=== PATIENT | female | born 1980 | race Caucasian/White ===

== ENCOUNTER 2018-02-03 11:43 | Emergency (ER) | payer BC ==
--- NOTE | 2018-02-03 12:04 | ED Physician Documentation ---
PD HPI SEIZURE - Stated complaint Stated Complaint: SZ - Chief complaint Chief Complaint: Cardiac - History obtained from History obtained from: Patient - History of Present Illness Timing - onset: Last night Witnessed: Unwitnessed Number of seizures: Single (She awoke from sleep with a feeling of pain in her teeth and stiff stiffness in her muscles. She is also having some pain in the left chest area. She believes she might have had a seizure during the night. She had had another similar episode several years ago with the tongue injury and a broken tooth and the assumption was a seizure episode. She had not been on any seizure medicines. She denies any headache. She denies any seizure disorder when younger. She is not having any headache. She was having chest pain continued into today and came here for evaluation of that after calling her primary care to try to get an appointment.) Description of seizure activity: Generalized Injury during seizure: Other (she feels her upper left teeth are sore and she is having left/anterior chest pain.) Associated symptoms: Chest pain. No: Headache, Vision changes, Dyspnea, Nausea / vomiting History of seizures: No: Known seizure disorder (She had a similar episode several years ago during the night as well and thought it was likely seizure as she had bit her tongue and broke a tooth. She had not had any workup of it and no interval problems. She denies any seizure disorder when younger.) Contributing factors: Other (She had just gotten back from a week in [place] for vacation. She states she was there with friends and did drink a little bit heavily during it but not excessive. She denied any anxiety or withdrawal symptoms. She has been home for 2-3 days. She is feeling stressed at home.). No: Head injury, EtOH withdrawal, Benzo withdrawal Similar symptoms before: No diagnosis Recently seen: Not recently seen Review of Systems Constitutional: denies: Fever, Chills, Myalgias Eyes: denies: Loss of vision, Decreased vision, Photophobia Nose: denies: Rhinorrhea / runny nose, Congestion Throat: reports: Dental pain / toothache (after the event last night, left upper teeth sore with occlusion. No fractures, per patient.). denies: Sore throat Cardiac: reports: Chest pain / pressure (today post seizure like event). denies: Palpitations, Pedal edema, Calf pain Respiratory: denies: Dyspnea, Cough, Wheezing GI: denies: Abdominal Pain, Nausea, Vomiting, Diarrhea : denies: Dysuria, Frequency Skin: denies: Abrasion (s), Laceration (s) Musculoskeletal: denies: Neck pain, Back pain Neurologic: denies: Generalized weakness, Focal weakness, Numbness, Altered mental status, Headache, Head injury PD PAST MEDICAL HISTORY - Past Medical History Cardiovascular: None Respiratory: None Endocrine/Autoimmune: None - Present Medications Home Medications: Ambulatory Orders Medication Instructions Recorded Confirmed HYDROcod/ACETAM 5/325 [[place] 5/325] 1 tab PO Q6H PRN #15 tablet 02/03/18 Losartan [Cozaar] 50 mg PO DAILY #30 tablet 02/03/18 Naproxen [Naprosyn] 500 mg PO BID PRN #30 tablet 02/03/18 - Allergies Allergies/Adverse Reactions: Allergies Allergy/AdvReac Type Severity Reaction Status Date / Time sulfamethoxazole Allergy Hives Verified 02/03/18 11:48 [From ] trimethoprim [From ] Allergy Hives Verified 02/03/18 11:48 - Living Situation Living Situation: reports: With family Living Arrangement: reports: At home - Social History Does the pt smoke?: No Does the pt drink ETOH?: Yes Does the pt have substance abuse?: No - Family History Family history: denies: CAD, Venous thromboembolism PD ED PE NORMAL - Vitals Vital signs reviewed: Yes - General General: Alert and oriented X 3, No acute distress, Well developed/nourished - HEENT HEENT: Atraumatic, Moist mucous membranes, Pharynx benign, Dentition benign (no obvious fractures/broken teeth. Mild abrasion left side of tongue. ) - Neck Neck: Supple, no meningeal sign, No bony TTP, No adenopathy - Cardiac Cardiac: RRR, No murmur - Respiratory Respiratory: Clear bilaterally, Other (some mild chestwall tenderness left parasternal area. However she says she also feels a deeper pain. ) - Abdomen Abdomen: Soft, Non tender - Back Back: No CVA TTP, No spinal TTP - Derm Derm: Normal color - Extremities Extremities: No deformity, No tenderness to palpate - Neuro Neuro: Alert and oriented X 3, officer captain 2-12 intact, No motor deficit, No sensory deficit, Normal speech Eye Opening: Spontaneous Motor: Obeys Commands Verbal: Oriented GCS Score: 15 Results - Vitals Vitals: Vital Signs - 24 hr 02/03/18 02/03/18 02/03/18 11:44 12:08 12:45 Temperature 36.5 C Heart Rate 95 81 76 Respiratory 20 20 22 Rate Blood Pressure 237/118 H 200/121 H 214/115 H O2 Saturation 100 98 98 02/03/18 02/03/18 02/03/18 12:50 12:55 13:00 Temperature Heart Rate 72 70 75 Respiratory 20 22 18 Rate Blood Pressure 195/130 H 161/125 H 166/105 H O2 Saturation 97 99 97 02/03/18 13:15 Temperature Heart Rate 73 Respiratory Rate Blood Pressure 184/122 H O2 Saturation 100 Oxygen O2 Source Room air - EKG (time done) 11:54 Rate: Rate (enter#) (76) Rhythm: NSR [place]: Normal Intervals: Normal [place] QRS: Normal Ischemia: Normal ST segments. No: ST elevation c/w ischemia, ST depression - Labs Labs: Laboratory Tests 02/03/18 02/03/18 02/03/18 12:30 12:30 12:30 WBC 6.2 RBC 4.02 L Hgb 14.0 Hct 40.7 MCV 101.4 H MCH 34.7 H MCHC 34.3 RDW 14.2 Plt Count 284 MPV 7.1 L Neut # (Auto) 4.7 Lymph # (Auto) 1.1 L [place] # (Auto) 0.3 Eos # (Auto) 0.0 Baso # (Auto) 0.0 Absolute Nucleated RBC 0.00 Nucleated RBC % 0.1 D-Dimer Sodium 141 Potassium 3.8 Chloride 109 Carbon Dioxide 24 Anion Gap 8.0 BUN 12 Creatinine 0.6 Estimated GFR (MDRD) 112 Glucose 97 Calcium 8.7 Total Bilirubin 0.7 AST 23 ALT 19 Alkaline Phosphatase 59 Troponin I < 0.04 B-Natriuretic Peptide Total Protein 7.2 Albumin 3.9 Globulin 3.3 Albumin/Globulin Ratio 1.2 Lipase 24 02/03/18 02/03/18 12:30 12:30 WBC RBC Hgb Hct MCV MCH MCHC RDW Plt Count MPV Neut # (Auto) Lymph # (Auto) [place] # (Auto) Eos # (Auto) Baso # (Auto) Absolute Nucleated RBC Nucleated RBC % D-Dimer < 200.0 L Sodium Potassium Chloride Carbon Dioxide Anion Gap BUN Creatinine Estimated GFR (MDRD) Glucose Calcium Total Bilirubin AST ALT Alkaline Phosphatase Troponin I B-Natriuretic Peptide 34 Total Protein Albumin Globulin Albumin/Globulin Ratio Lipase - Rads (name of study) chest xray Radiology: Prelim report reviewed (no acute process) head CT Radiology: Prelim report reviewed (no acute process) PD MEDICAL DECISION MAKING - ED course Complexity details: considered differential (Initial worry with a significant hypertension associated with some chest pain and what she thinks was a seizure during the night would be worrisome for hypertensive urgency with endorgan dysf unction. However she does not have any headache today nor blurred vision or nausea. This makes it sound less likely. Could consider intracranial bleed but again no headache is present. We will do a CT scan to evaluate. Her chest pain has musculoskeletal component to it but I would also be worried for vascular problem given the hypertension. She is given medications for blood pressure and this reduces moderately into a reasonable range for now of 160-170 systolic. She is given some pain medication anti-inflammatory. She is feeling better with that. Her kidney function as well as EKG troponin and head CT are normal. There is no obvious organ dysfunction related to the blood pressure so I presume it was more acute and not that significantly high for a prolonged period. We will start her on a blood pressure medicine.), d/w patient Departure - Departure Disposition: 01 Home, Self Care Clinical Impression: Musculoskeletal chest pain, History of seizure Hypertension Qualifiers: Hypertension type: unspecified secondary hypertension Qualified Code(s): I15.9 - Secondary hypertension, unspecified Clinical Impression: (Ruled Out): Myocardial infarction, Pulmonary embolism Condition: Stable Record reviewed to determine appropriate education?: Yes Instructions: ED Strain Chest Wall Follow-Up: Milly He PA-C [Primary Care Provider] - Prescriptions: HYDROcod/ACETAM 5/325 [[place] 5/325] 1 tab PO Q6H PRN #15 tablet PRN Reason: Pain Losartan [Cozaar] 50 mg PO DAILY #30 tablet Naproxen [Naprosyn] 500 mg PO BID PRN #30 tablet PRN Reason: Pain Comments: You do not have any signs of serious causes of the chest pain based on your EKG, chest x-ray and blood tests. I presume its musculoskeletal pain subsequent to the apparent seizure you had. Your head CT appears normal. I would not necessarily see a reason for antiseizure medication based on that episode. We could go with some blood pressure medicine because her blood pressure was quite high. Use some anti-inflammatories naproxen twice daily for the next 7-10 days. Add Tylenol or hydrocodone if needed for pain. Start losartan 50 mg daily for blood pressure. Recheck your blood pressure over the next few days and follow- up with your primary care in about a week to see how well you are doing and if the medication needs adjusting. Return if worse symptoms or anything new develops. Discharge Date/Time: 02/03/18 14:05
[2018-02-03] MEDS ORDERED: KETOROLAC 60 MG/2 ML VIAL IVP STA (12:20)
[2018-02-03] MEDS ORDERED: SODIUM CHLORIDE 0.9% 1,000 ML IV ONE (12:21)
[2018-02-03] MEDS ORDERED: METOPROLOL 5 MG/5 ML VIAL IVP STA (12:21)
[2018-02-03] MEDS ORDERED: NITROGLYCERIN SL 0.4 MG TABLET SL STA (12:21)
[2018-02-03 12:36] LABS: BASOPHILS % (AUTO) 0.8 %; EOSINOPHILS % (AUTO) 0.6 %; LYMPHOCYTES # (AUTO) 1.1 10^3/uL (1.5-3.5); LYMPHOCYTES % (AUTO) 18.1 %; MEAN CORPUSCULAR HEMOGLOBIN 34.7 pg (27.0-31.0); MEAN CORPUSCULAR HGB CONC 34.3 g/dL (32.0-36.0); MEAN CORPUSCULAR VOLUME 101.4 fL (81.0-99.0); MEAN PLATELET VOLUME 7.1 fL (7.9-10.8); MONOCYTES # (AUTO) 0.3 10^3/uL (0.0-1.0); NEUTROPHILS # (AUTO) 4.7 10^3/uL (1.5-6.6); NEUTROPHILS % (AUTO) 75.5 %; PLT - PLATELET COUNT 284 10^3/uL (130-450); RED BLOOD COUNT 4.02 10^6/uL (4.20-5.40); RED CELL DISTRIBUTION WIDTH 14.2 % (12.0-15.0); WHITE BLOOD COUNT 6.2 x10^3/uL (4.8-10.8)
[2018-02-03 12:51] LABS: ALBUMIN 3.9 g/dL (3.2-5.5); ALBUMIN/GLOBULIN RATIO 1.2 (1.0-2.2); BILIRUBIN,TOTAL 0.7 mg/dL (0.2-1.0); CALCIUM 8.7 mg/dL (8.5-10.3); CREATININE 0.6 mg/dL (0.4-1.0); TOTAL PROTEIN 7.2 g/dL (6.7-8.2)
--- NOTE | 2018-02-03 12:55 | CT Report ---
Reason: seizure 2 days ago Procedure Date: 02/03/2018 Accession Number: [id number] / [id number] Procedure: CT - Head W/O CPT Code: FULL RESULT: EXAM: CT HEAD EXAM DATE: 02/03/2018 12:39 PM. CLINICAL HISTORY: Seizure 2 days ago. COMPARISON: None. TECHNIQUE: Multiaxial CT images were obtained from the foramen magnum to the vertex. Reformats: Sagittal and coronal. IV contrast: None. In accordance with CT protocol optimization, one or more of the following dose reduction techniques were utilized for this exam: automated exposure control, adjustment of mA and/or KV based on patient size, or use of iterative reconstructive technique. FINDINGS: Parenchyma: No intraparenchymal hemorrhage. No evidence of mass, midline shift, or CT findings of infarction. Mckeon-white differentiation is distinct. Physiologic bilateral basal ganglia calcifications. Extraaxial Spaces: Normal for age. No subdural or epidural collections identified. Ventricles: Normal in size and position. Sinuses and Orbits: Imaged paranasal sinuses, orbits, and mastoids show no significant abnormality. Bones: No evidence of fracture or calvarial defect. Other: None. IMPRESSION: 1. No evidence for intracranial hemorrhage or mass on noncontrast imaging. If there is clinical indication to further assess, consider MRI. RADIA
--- NOTE | 2018-02-03 13:26 | XRAY Report ---
Reason: chest pain Procedure Date: 02/03/2018 Accession Number: [id number] / [id number] Procedure: XR - Chest 2 View X-Ray CPT Code: 71950 FULL RESULT: EXAM: CHEST RADIOGRAPHY EXAM DATE: 02/03/2018 01:05 PM. CLINICAL HISTORY: Left-sided chest pain. COMPARISON: None. TECHNIQUE: 2 views. FINDINGS: Lungs/Pleura: Linear left basilar scar/atelectasis. No consolidation. No pneumothorax. No pleural effusions. Mediastinum: Heart and mediastinal contours are unremarkable. Other: No acute osseous abnormalities. IMPRESSION: 1. Linear left basilar scar/atelectasis. 2. No acute disease. RADIA
[2018-02-03 13:36] VITALS: BP 184/122
== END 2018-02-03 14:05 | disposition home or self-care (01) ==
LOC: ED 11:43
DX: R07.89 Other chest pain (principal); I15.9 Secondary hypertension, unspecified; Z86.69 Personal history of other diseases of the nervous system and sense organs; I51.7 Cardiomegaly
CPT/HCPCS: 36415; 70450; 71046; 80053; 83690; 83880; 84484; 85025; 85379; 93005; 96361; 96374; 96375; 99283; 99284; A9270

== ENCOUNTER 2020-11-26 13:53 | Emergency (ER) | payer BC, OTHER ==
[2020-11-26] MEDS ORDERED: IOPAMIDOL-300 100 ML VIAL ONE (14:45)
[2020-11-26 15:24] LABS: BASOPHILS % (AUTO) 0.5 %; EOSINOPHILS # (AUTO) 0.1 10^3/uL (0.0-0.7); EOSINOPHILS % (AUTO) 1.1 %; HCT - HEMATOCRIT 42.2 % (37.0-47.0); LYMPHOCYTES # (AUTO) 1.3 10^3/uL (1.5-3.5); LYMPHOCYTES % (AUTO) 17.6 %; MEAN CORPUSCULAR HEMOGLOBIN 34.2 pg (27.0-31.0); MEAN CORPUSCULAR HGB CONC 33.2 g/dL (32.0-36.0); MEAN CORPUSCULAR VOLUME 103.2 fL (81.0-99.0); MEAN PLATELET VOLUME 9.1 fL (7.9-10.8); MONOCYTES # (AUTO) 0.4 10^3/uL (0.0-1.0); MONOCYTES % (AUTO) 5.5 %; NEUTROPHILS # (AUTO) 5.6 10^3/uL (1.5-6.6); NEUTROPHILS % (AUTO) 75.2 %; PLT - PLATELET COUNT 312 10^3/uL (130-450); RED BLOOD COUNT 4.09 10^6/uL (4.20-5.40); RED CELL DISTRIBUTION WIDTH 13.5 % (12.0-15.0); WHITE BLOOD COUNT 7.5 x10^3/uL (4.8-10.8)
[2020-11-26 15:33] LABS: ALBUMIN 4.3 g/dL (3.2-5.5); ALBUMIN/GLOBULIN RATIO 1.2 (1.0-2.2); BILIRUBIN,TOTAL 0.5 mg/dL (0.2-1.0); CALCIUM 9.2 mg/dL (8.5-10.3); CREATININE 0.8 mg/dL (0.4-1.0); POTASSIUM 3.8 mmol/L (3.5-5.0); TOTAL PROTEIN 7.8 g/dL (6.7-8.2)
[2020-11-26] MEDS ORDERED: IOPAMIDOL-300 100 ML VIAL IVP ONE (16:12)
--- NOTE | 2020-11-26 16:30 | CT Report ---
PROCEDURE: ANGIO HEAD W/WO INDICATIONS: Slurred speech yesterday CONTRAST: IV CONTRAST: Isovue 300 ml: 80 PO CONTRAST: *NO PO CONTRAST TECHNIQUE: Precontrast 4.5 mm thick angled axial sections acquired from the foramen magnum to the vertex. Afte r the administration of intravenous contrast, 1 mm thick sections acquired through the [place] of [place] is. Postcontrast 4.5 mm thick sections then re-acquired from the foramen magnum to the vertex. 3-di mensional fyrfjte-stmulvbim-ygnkvrxbvr (MIP) and/or volume rendering reformats were acquired of the c entral intracranial vasculature. For radiation dose reduction, the following was used: automated ex posure control, adjustment of mA and/or kV according to patient size. COMPARISON: Head CT 02/03/2018 FINDINGS: Image quality: Excellent. Anterior circulation: Intracranial internal carotid arteries are normal in size and flow. The flow within the paired anterior cerebral arteries is normal and symmetric. The flow within the middle cer ebral arteries is normal and symmetric. The anterior communicating artery is seen. No aneurysms are seen. Posterior circulation: Visualized portions of the vertebral arteries demonstrate normal caliber, and join to form a normal appearing basilar artery. Flow within the posterior cerebral arteries is norm al and symmetric. No aneurysms are seen. CSF spaces: Ventricles are normal in size and shape. Basal cisterns are patent. No extra-axial flu id collections. Brain: No midline shift. No intracranial bleeds or masses. Mckeon-white matter interface appears int act. Skull and face: Calvarium and facial bones appear intact, without suspicious lesions. Sinuses: Visualized sinuses and mastoids are clear. IMPRESSION: No acute intracranial abnormality. No flow-limiting stenosis or occlusion of the major intracranial arterial circulation. Reviewed by: Jose Junior MD on 11/26/2020 4:29 PM PDT Approved by: Jose Junior MD on 11/26/2020 4:29 PM PDT Station ID: [id number]
--- NOTE | 2020-11-26 16:32 | CT Report ---
PROCEDURE: ANGIO NECK W INDICATIONS: Slurred speech yesterday CONTRAST: IV CONTRAST: Isovue 300 ml: 80 PO CONTRAST: *NO PO CONTRAST TECHNIQUE: After the administration of intravenous contrast, 1.5 mm axial sections acquired from the aortic arch to the [place] of [place]. Coronal 3-D maximum intensity projection (MIP) and/or volume rendering ref ormats were then performed. For radiation dose reduction, the following was used: automated exposur e control, adjustment of mA and/or kV according to patient size. COMPARISON: None. FINDINGS: Image quality: Excellent. Carotid system: The great vessels demonstrate a conventional anatomy as they arise from the aortic a rc. The origins of the common carotid arteries appear patent. The common carotid arteries demonstr ate normal calibers and courses. The bifurcation regions appear normal bilaterally. The internal ca rotid arteries demonstrate normal caliber and course. Posterior circulation: The origins of the vertebral arteries appear patent. The more superior porti ons of the vertebral arteries demonstrate normal course and caliber. They join to form a normal appe aring basilar artery. Soft tissues: Visualized neck soft tissues demonstrate no suspicious abnormalities. The thyroid is normal in size and there are no incidental findings. Bones: No suspicious bony lesions. Visualized cervical spine appears normally aligned. IMPRESSION: No hemodynamically significant arterial stenosis or acute vascular findings in the neck. The estimate of stenosis included in the report of the imaging study was calculated using the NASCET method CLINICAL RECOMMENDATION STATEMENTS: In patients <35 years with an ITN detected on CT, MRI, or extrathyroidal ultrasound, the Committee re commends further evaluation with dedicated thyroid ultrasound if the nodule is ?1 cm and has no suspi cious imaging features, and if the patient has normal life expectancy. In patients ?35 years with an ITN detected on CT, MRI, or extrathyroidal ultrasound, the Committee re commends further evaluation with dedicated thyroid ultrasound if the nodule is ?1.5 cm and has no noah picious imaging features, and if the patient has normal life expectancy. (ACR, 2014) Reviewed by: Jose Junior MD on 11/26/2020 4:31 PM PDT Approved by: Jose Junior MD on 11/26/2020 4:31 PM PDT Station ID: [id number]
--- NOTE | 2020-11-26 16:55 | ED Physician Documentation ---
PD HPI FOCAL NEURO - Stated complaint Stated Complaint: STROKE SYMPTOMS - Chief complaint Chief Complaint: Neuro - History obtained from History obtained from: Patient - History of Present Illness Timing - onset: Yesterday Timing - duration: Minutes (1-2) Timing - details: Abrupt onset Severity of deficit: Moderate Weakness: Face, Left. No: Arm, Hand, Leg, Foot, Right Numbness: No: Face, Arm, Hand, Leg, Foot, Right, Left Associated symptoms: Other (states vision was "wavy"). No: Headache, Nausea / vomiting, Seizure, Syncope, Fall, Head injury, Chest pain, Neck pain, Back pain, Fever Contributing factors: negative: Anticoagulated, Vascular dz, Atrial fibrillation, Prosthetic heart valve Baseline status: positive: A&OX3, ambulatory, indep Similar symptoms before: Has not had sx before Recently seen: Not recently seen Review of Systems Ten Systems: 10 systems reviewed and negative Constitutional: denies: Fever, Myalgias Throat: denies: Sore throat Cardiac: denies: Chest pain / pressure, Palpitations Respiratory: denies: Dyspnea, Cough, Wheezing GI: denies: Abdominal Pain, Nausea, Vomiting, Diarrhea : denies: Dysuria, Frequency, Hesitancy PD PAST MEDICAL HISTORY - Past Medical History Cardiovascular: None Respiratory: None Neuro: Other Endocrine/Autoimmune: None - Past Surgical History Past Surgical History: Yes HEENT: Tonsil/Adenoidectomy - Present Medications Home Medications: Ambulatory Orders Medication Instructions Recorded Confirmed HYDROcod/ACETAM 5/325 [[place] 5/325] 1 tab PO Q6H PRN #15 tablet 02/03/18 Losartan [Cozaar] 50 mg PO DAILY #30 tablet 02/03/18 Naproxen [Naprosyn] 500 mg PO BID PRN #30 tablet 02/03/18 Nitrofurantoin [Macrobid] 100 mg PO BID #10 cap 11/26/20 - Allergies Allergies/Adverse Reactions: Allergies Allergy/AdvReac Type Severity Reaction Status Date / Time sulfamethoxazole Allergy Hives Verified 11/26/20 14:02 [From ] trimethoprim [From ] Allergy Hives Verified 11/26/20 14:02 - Social History Does the pt smoke?: No Smoking Status: Never smoker Does the pt drink ETOH?: Yes Does the pt have substance abuse?: No - Immunizations Immunizations are current?: Yes Immunizations: TDAP current <10years PD ED PE NORMAL - Vitals Vital signs reviewed: Yes - General General: Alert and oriented X 3, No acute distress, Well developed/nourished - HEENT HEENT: Atraumatic, PERRL, EOMI, Ears normal, Moist mucous membranes, Pharynx benign - Neck Neck: Supple, no meningeal sign, No JVD, No bruit - Cardiac Cardiac: RRR, No murmur, Strong equal pulses - Respiratory Respiratory: No respiratory distress, Clear bilaterally - Abdomen Abdomen: Soft, Non tender, Non distended - Derm Derm: Warm and dry, No rash - Extremities Extremities: No edema, No calf tenderness / cord - Neuro Neuro: Alert and oriented X 3, layer up 2-12 intact, No motor deficit, No sensory deficit, Normal speech Eye Opening: Spontaneous Motor: Obeys Commands Verbal: Oriented GCS Score: 15 - Psych Psych: Normal mood, Normal affect NIHSS - Time Time: 17:30 - Level of Consciousness Level of consciousness: (0) Alert, Keenly responsive LOC Questions: (0) Answers both Q's correct LOC Commands: (0) Performs both correctly - Gaze Best Gaze: (0) Normal - Visual Visual: (0) No loss - Facial Palsy Facial Palsy: (0) Normal, symmetrical movement - Motor Arms (both separate) Motor Arm (right): (0) No drift Motor Arm (left): (0) No drift - Motor Legs (both separate) Motor Leg (right): (0) No drift Motor Leg (left): (0) No drift - Limb Ataxia Limb Ataxia: (0) Absent - Sensory Sensory: (0) Normal - Best Language Best Language: (0) No aphasia - Dysarthria Dysarthria: (0) Normal - Extinction and Inattention (formally neg Extinction and inattention: (0) No abnormality - Total Score/Results Total Score/Result: 0 Results - Vitals Vitals: Vital Signs - 24 hr 11/26/20 11/26/20 14:02 17:42 Temperature 36.5 C 36.6 C Heart Rate 78 84 Respiratory 16 16 Rate Blood Pressure 170/100 H 144/97 H O2 Saturation 99 98 Oxygen O2 Source Room air - EKG (time done) 1444 Rate: Rate (enter#) (69) Rhythm: NSR [place]: Normal Intervals: Normal [place] QRS: Normal Ischemia: Normal ST segments - Labs Labs: Laboratory Tests 11/26/20 11/26/20 11/26/20 15:17 15:17 17:00 WBC 7.5 RBC 4.09 L Hgb 14.0 Hct 42.2 MCV 103.2 H MCH 34.2 H MCHC 33.2 RDW 13.5 Plt Count 312 MPV 9.1 Neut # (Auto) 5.6 Lymph # (Auto) 1.3 L [place] # (Auto) 0.4 Eos # (Auto) 0.1 Baso # (Auto) 0.0 Absolute Nucleated RBC 0.00 Nucleated RBC % 0.0 Sodium 140 Potassium 3.8 Chloride 104 Carbon Dioxide 28 Anion Gap 8.0 BUN 15 Creatinine 0.8 Estimated GFR (MDRD) 79 L Glucose 95 Calcium 9.2 Total Bilirubin 0.5 AST 30 ALT 31 Alkaline Phosphatase 56 Total Protein 7.8 Albumin 4.3 Globulin 3.5 Albumin/Globulin Ratio 1.2 Urine Color YELLOW Urine Clarity HAZY Urine pH 5.5 Ur Specific [place] 1.010 Urine Protein NEGATIVE Urine Glucose (UA) NEGATIVE Urine Ketones NEGATIVE Urine Occult Blood NEGATIVE Urine Nitrite POSITIVE H Urine Bilirubin NEGATIVE Urine Urobilinogen 0.2 (NORMAL) Ur Leukocyte Esterase NEGATIVE Urine RBC 0-5 Urine WBC 4-5 Ur Squamous Epith Cells RARE Squamous Urine Bacteria Many H Ur Microscopic Review INDICATED Urine Culture Comments INDICATED - Rads (name of study) T angiogram head Radiology: Final report received, EMP read contemporaneously, See rad report CT angiogram neck Radiology: Final report received, EMP read contemporaneously, See rad report PD MEDICAL DECISION MAKING - ED course Complexity details: reviewed results, re-evaluated patient, considered differential, d/w patient ED course: No acute findings on angiogram of the head and neck. No significant lab abnormalities other than a UTI. Discussed the case with on-call neurology from [facility], they recommend observation overnight for MRI and cardiac echo. Patient does not want to stay in the hospital and states she will follow up with her doctor tomorrow to get the MRI scheduled this week as well as an echocardiogram. We will start her on aspirin daily as well. Patient asymptomatic here. Patient counseled regarding signs and symptoms for which I believe and urgent re-evaluation would be necessary. Patient with good understanding of and agreement to plan and is comfortable going home at this time This document was made in part using voice recognition software. While efforts are made to proofread this document, sound alike and grammatical errors may occur. Departure - Departure Disposition: 01 Home, Self Care Clinical Impression: TIA (transient ischemic attack) UTI (urinary tract infection) Qualifiers: Urinary tract infection type: acute cystitis Hematuria presence: without hematuria Qualified Code(s): N30.00 - Acute cystitis without hematuria Condition: Good Instructions: ED Transient Ischemic Attack, ED UTI Cystitis Female Follow-Up: Milly He PA-C [Primary Care Provider] - Tomorrow Prescriptions: Nitrofurantoin [Macrobid] 100 mg PO BID #10 cap Comments: Your CT angiogram of your head and neck as well as laboratory testings are normal today. Your urine does appear to have an infection. We will place you on antibiotics for this. As we discussed, your symptoms yesterday could be due to a variety of reasons including a TIA. It is recommended that you have an MRI and echocardiogram within the next week. It is also recommended that you be started on an aspirin daily until your work-up is complete. Please follow-up with your primary care provider's office tomorrow to have these test scheduled within the next few days. Return if you worsen. Discharge Date/Time: 11/26/20 18:12
[2020-11-26 17:31] LABS: BILIRUBIN,URINE NEGATIVE (NEGATIVE); GLUCOSE, URINE (UA) NEGATIVE (NEGATIVE); KETONES,URINE (UA) NEGATIVE (NEGATIVE); LEUKOCYTE ESTERASE, URINE NEGATIVE (NEGATIVE); NITRITE,URINE POSITIVE (NEGATIVE); OCCULT BLOOD,URINE NEGATIVE (NEGATIVE); PH,URINE 5.5 PH (5.0-7.5); PROTEIN,URINE NEGATIVE (NEGATIVE); UROBILINOGEN,URINE 0.2 (NORMAL) E.U./dL (NORMAL)
[2020-11-26 17:34] LABS: CLARITY,URINE HAZY (CLEAR)
[2020-11-26 17:42] LABS: RBC,URINE 0-5 /HPF (0-5)
[2020-11-26 17:43] VITALS: BP 144/97
[2020-11-26 17:43] LABS: BACTERIA,URINE Many /HPF (None Seen); SQUAMOUS EPITHELIAL CELL,UR RARE Squamous (<= Few)
[2020-11-26] MEDS ORDERED: NITROFURANTOIN MACRO 100 MG CAPSULE PO STA (17:48)
[2020-11-26] MEDS ORDERED: ASPIRIN CHEW 81 MG TABLET PO STA (17:53)
== END 2020-11-26 18:12 | disposition home or self-care (01) ==
LOC: ED 13:53
DX: G45.9 Transient cerebral ischemic attack, unspecified (principal); N30.00 Acute cystitis without hematuria
CPT/HCPCS: 36415; 70496; 70498; 80053; 81001; 85025; 87086; 93005; 99284; A9270; Q9967; 81003

== ENCOUNTER 2023-04-17 08:35 | Outpatient (CLI) | payer BC ==
[2023-04-17 12:03] LABS: BASOPHILS % (AUTO) 0.9 %; EOSINOPHILS # (AUTO) 0.1 10^3/uL (0.0-0.7); EOSINOPHILS % (AUTO) 1.6 %; HCT - HEMATOCRIT 40.8 % (37.0-47.0); HGB - HEMOGLOBIN 13.2 g/dL (12.0-16.0); LYMPHOCYTES # (AUTO) 0.9 10^3/uL (1.5-3.5); LYMPHOCYTES % (AUTO) 21.7 %; MEAN CORPUSCULAR HEMOGLOBIN 32.4 pg (27.0-31.0); MEAN CORPUSCULAR HGB CONC 32.4 g/dL (32.0-36.0); MEAN CORPUSCULAR VOLUME 100.2 fL (81.0-99.0); MEAN PLATELET VOLUME 9.8 fL (7.9-10.8); MONOCYTES # (AUTO) 0.3 10^3/uL (0.0-1.0); MONOCYTES % (AUTO) 7.9 %; NEUTROPHILS # (AUTO) 2.9 10^3/uL (1.5-6.6); NEUTROPHILS % (AUTO) 67.7 %; PLT - PLATELET COUNT 310 10^3/uL (130-450); RED BLOOD COUNT 4.07 10^6/uL (4.20-5.40); RED CELL DISTRIBUTION WIDTH 14.1 % (12.0-15.0); WHITE BLOOD COUNT 4.3 x10^3/uL (4.8-10.8)
[2023-04-17 12:33] LABS: ALBUMIN 4.2 g/dL (3.2-5.5); ALBUMIN/GLOBULIN RATIO 1.5 (1.0-2.2); ALKALINE PHOSPHATASE 46 IU/L (42-121); ALT ALANINE AMINOTRANSFERASE 16 IU/L (10-60); AST ASPARTATE AMINOTRANSFERASE 17 IU/L (10-42); BILIRUBIN,TOTAL 0.5 mg/dL (0.2-1.0); BUN - BLOOD UREA NITROGEN 13 mg/dL (6-20); CALCIUM 9.6 mg/dL (8.5-10.3); CARBON DIOXIDE - CO2 25 mmol/L (21-32); CHLORIDE 104 mmol/L (101-111); CHOL/HDL RATIO 5.2 (<4.4); CHOLESTEROL 186 mg/dL; CREATININE 0.8 mg/dL (0.6-1.3); GFR - MDRD 78 (>89); GLUCOSE 88 mg/dL (74-104); HDL CHOLESTEROL 36 mg/dL; LDL CHOLESTEROL,CALCULATED 101 mg/dL; LDL/HDL RATIO 2.8 (<4.4); POTASSIUM 3.6 mmol/L (3.5-4.5); SODIUM 137 mmol/L (135-145); TRIGLYCERIDES 246 mg/dL (48-352); VLDL CHOLESTEROL 49 mg/dL
[2023-04-17 16:55] LABS: THYROID STIMULATING HORMONE 4.35 uIU/mL (0.34-5.60)
== END 2023-04-17 08:36 | disposition home or self-care (01) ==
LOC: LAB.N 08:35
PROVIDERS: ATTEND Physician Assistant Medical
DX: Z00.00 Encounter for general adult medical examination without abnormal findings (principal); E03.9 Hypothyroidism, unspecified
CPT/HCPCS: 36415; 80053; 80061; 83721; 84443; 85025